=== PATIENT | female | born 1950 | race Caucasian/White ===

== ENCOUNTER 2023-11-12 18:11 | Emergency (ER) | payer OTHER, SELFPAY ==
--- NOTE | ~2023-11-12 | XR_ITS ---
EXAMINATION: XR shoulder LT min 2V DATE: 11/12/2023 18:31 INDICATION: Left shoulder injury. TECHNIQUE: 2 views of left shoulder were obtained. COMPARISON: None. FINDINGS: There is a comminuted fracture of proximal left humerus involving the surgical neck. The ma in distal fracture fragment demonstrates 2.0 cm medial displacement, 2.1 cm anterior displacement, an d impaction. 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 Glenohumeral joint is not well profiled. IMPRESSION: 1. Two-part fracture of proximal left humerus. Reviewed, dictated and finalized at location E. P [facility]
--- NOTE | ~2023-11-12 | XR_ITS ---
EXAMINATION: XR shoulder LT min 2V DATE: 11/12/2023 22:20 INDICATION: Fracture of proximal left humerus status post reduction. TECHNIQUE: 2 views of left shoulder were obtained. COMPARISON: Left shoulder radiographs at 9:46 PM FINDINGS: There is a comminuted fracture of proximal left humerus involving the surgical neck. The ma in distal fracture fragment demonstrates 24 degrees posterior angulation, 2.0 cm anterior displacemen t, and impaction. Glenohumeral joint is not well profiled. There is mild acromioclavicular joint oste oarthritis. IMPRESSION: 1. Two-part fracture of proximal left humerus. Reviewed, dictated and finalized at location E. L [employer]
--- NOTE | ~2023-11-12 | XR_ITS ---
EXAMINATION: XR shoulder LT min 2V DATE: 11/12/2023 21:50 INDICATION: Fracture of proximal left humerus status post reduction. TECHNIQUE: 2 views of left shoulder were obtained. COMPARISON: Left shoulder radiographs 11/12/2023 FINDINGS: There is a comminuted fracture of proximal left humerus involving the surgical neck. The ma in distal fracture fragment demonstrates 2.0 cm anterior displacement and impaction. The glenohumeral joint is not well profiled. There is mild acromioclavicular joint osteoarthritis. IMPRESSION: 1. Two-part fracture of proximal left humerus. Reviewed, dictated and finalized at location E. [employer]
[2023-11-12 18:22] VITALS: BP 167/91; PULSE 99; RESP 16; TEMP 37.1; O2SAT 100
--- NOTE | 2023-11-12 20:43 | ED.UPPEXIN ---
HPI - Extremity Injury (Upper) General Chief Complaint: Extremity Injury, Upper Stated Complaint: left UE pain Time Seen by Provider: 11/12/23 20:15 Source: patient Mode of arrival: ambulatory Limitations: no limitations History of Present Illness HPI narrative: Patient is a 73-year-old female who presents ED with report of left shoulder pain. patient reports she was out on her deck this morning attempting to feed the birds when she slipped on a piece of ice. She fell onto her left side and landed directly on her left shoulder. Denied any other injuries. She did not hit her head or lose consciousness. She reported having some numbness and tingling in her left arm initially after the incident, but states this has since resolved. Denies neck or back pain, elbow pain, chest pain, shortness of breath. Related Data Home Medications Medication Instructions Recorded Confirmed calcium-vit D3-ferrous fumarate tablet PO 09/17/23 09/17/23 600 mg-125 unit-18 mg tablet Allergies Allergy/AdvReac Type Severity Reaction Status Date / Time Latex, Natural Rubber Allergy Mild Itching Verified 11/12/23 18:52 Review of Systems Review of Systems: CONSTITUTIONAL: Denies fever, chills, or sweats. CARDIOVASCULAR: Denies chest pain. RESPIRATORY: Denies dyspnea. MUSCULOSKELETAL: See HPI. NEUROLOGIC: see HPI. Denies head injury or LOC. All systems reviewed & are unremarkable except as noted in HPI and below PMFSH Past Medical History Medical History Hypothyroid Social History Social History Smoking status: Never smoker Exam Narrative: GENERAL: Well appearing, well-nourished, non-toxic, in no acute distress. HEAD: Normocephalic, atraumatic. NECK: No midline cervical spinal tenderness. RESPIRATORY: Airway patent, respirations nonlabored. Clear to auscultation bilaterally, no rales, rhonchi, wheezing. CARDIOVASCULAR: Regular rate and rhythm without murmurs, rubs, or gallops. Radial pulses 2+. MUSCULOSKELETAL: Limited range of motion of left shoulder due to pain. Tenderness of left proximal humerus. Some swelling noted. No tenderness throughout left elbow or wrist. Sharp and dull sensation intact throughout left upper extremity. Equal jewelry internship strength bilaterally. Able to perform OK and thumbs up sign. Capillary refill intact throughout L hand. No midline thoracic or lumbar spinal tenderness. SKIN: Warm, dry, normal color. NEURO: A&O X3. Speech clear. Cranial nerves II-XII grossly intact. Steady gait. No ataxic movements. PSYCHIATRIC: Appropriate mood and affect. Normal interaction. Course Vital Signs Vital signs: Vital Signs Temperature 98.7 F 11/12/23 18:22 Pulse Rate 99 11/12/23 18:22 Respiratory Rate 16 11/12/23 18:22 Blood Pressure 167/91 H 11/12/23 18:22 Pulse Oximetry 100 11/12/23 18:22 Temperature 98.7 F 11/12/23 18:22 Pulse Rate 69 11/12/23 22:50 Respiratory Rate 16 11/12/23 22:50 Blood Pressure 131/78 11/12/23 22:50 Pulse Oximetry 100 11/12/23 22:50 Procedures Orthopedic Fracture Reduction Fracture #1: Fracture Reduction date: 11/12/23 Fracture Reduction time: 22:07 Time Out Performed: Yes Side: left Fracture Reduction Location: humerus Analgesia: none Pre-Procedure Neuro Vascular Exam: normal Technique: direct manipulation and traction/counter-traction Post Reduction X-rays Demonstrate: acceptable reduction Post-reduction neuro exam: intact and no change Post-reduction vascular exam: intact and no change Splint Applied: Yes Patient Tolerated Procedure: well and no complications MDM - Extremity Injury (Upper) MDM Narrative Medical decision making narrative: Patient presented to ED status post fall on ice, injury to left shoulder. No head injury
[2023-11-12 20:45] VITALS: BP 129/75; PULSE 73; RESP 15; O2SAT 99
--- NOTE | 2023-11-12 21:35 | PC.NURSE ---
pt had immoblizer ordered, but was returned to [facility] for arm sling per provider verbal order
[2023-11-12 22:50] VITALS: BP 131/78; PULSE 69; RESP 16; O2SAT 100
== END 2023-11-12 22:52 | disposition home or self-care (01) ==
PROVIDERS: Emergency Provider Physician Assistant; PCP Family Medicine Adolescent Medicine
DX: S42.222A 2-part displaced fracture of surgical neck of left humerus, initial encounter for closed fracture (principal); E03.9 Hypothyroidism, unspecified; W00.0XXA Fall on same level due to ice and snow, initial encounter
CPT/HCPCS: 23605; 73030; 99285; A4565